=== PATIENT | male | born 1980 | race Caucasian/White ===

== ENCOUNTER 2022-04-12 04:10 | Emergency (ER) | payer SELFPAY ==
[~2022-04-12] VITALS: Ht 167.6 cm; Wt 81.6 kg
[2022-04-12 04:11] VITALS: BP 146/79
[2022-04-12] MEDS ORDERED: OFLO5SOL27 LEFT EAR (06:01)
[2022-04-12] MEDS ORDERED: NAPR-54 PO (06:01)
== END 2022-04-12 06:20 | disposition home or self-care (01) ==
LOC: MED 04:10
DX: T16.2XXA Foreign body in left ear, initial encounter (principal); E11.9 Type 2 diabetes mellitus without complications; Z79.899 Other long term (current) drug therapy; X58.XXXA Exposure to other specified factors, initial encounter; Y93.89 Activity, other specified; Y92.89 Other specified places as the place of occurrence of the external cause; Y99.8 Other external cause status
CPT/HCPCS: 69200; 99284

== ENCOUNTER 2022-04-21 19:12 | Emergency (ER) | payer SELFPAY ==
[~2022-04-21] VITALS: Ht 167.6 cm; Wt 85.7 kg
[~2022-04-21 19:12] MED LIST: NAPR-54 PO; OFLO5SOL27 LEFT EAR
[2022-04-21 19:33] VITALS: BP 120/93
[2022-04-21] MEDS: HYDROcodone/APAP 5/325 MG 1 TAB TAB PO ONE (22:10)
[2022-04-22] MEDS ORDERED: CIPR7.5S OT (01:05)
[2022-04-22 01:19] VITALS: BP 131/67
== END 2022-04-22 01:19 | disposition home or self-care (01) ==
LOC: MED 19:12
DX: T16.2XXA Foreign body in left ear, initial encounter (principal); E11.9 Type 2 diabetes mellitus without complications; Z79.2 Long term (current) use of antibiotics; Z79.1 Long term (current) use of non-steroidal anti-inflammatories (NSAID); X58.XXXA Exposure to other specified factors, initial encounter; Y92.89 Other specified places as the place of occurrence of the external cause; Y93.89 Activity, other specified; Y99.8 Other external cause status
CPT/HCPCS: 69200; 99284

== ENCOUNTER 2022-04-27 14:43 | Emergency (ER) | payer SELFPAY ==
[~2022-04-27] VITALS: Ht 165.1 cm; Wt 86.2 kg
[~2022-04-27 14:43] MED LIST changes: +CIPR7.5S OT
[2022-04-27 15:11] VITALS: BP 138/98
--- NOTE | 2022-04-27 15:34 | NUR ---
DR CARDOZO AT BEDSIDE FOR EVAL
[2022-04-27] MEDS ORDERED: CIPR7.5S OT (15:42)
--- NOTE | 2022-04-27 16:05 | NUR ---
42 Y/O MALE BIB SELF C/O LEFT EAR PAIN, PER PT HE WAS SEEN IN ED 2 WEEKS AGO FOR THE SAME S/S, WAS IRRIGATED BUT CONTINUES TO STATE THAT HE FEELS MOVEMENT AND PAIN. pmh: dm2 nka med: metformin
--- NOTE | 2022-04-27 16:15 | NUR ---
LEFT ear irrigated with 50 ml of normal saline. COCKROACH EXOSKELETON noted removed from ear by irrigation. Patient TOLERATED WELL to procedure.
--- NOTE | 2022-04-27 16:30 | NUR ---
Patient discharged with v/s stable. Written and verbal after care instructions ABOUT OTITIS EXTERNA given and explained. Patient alert, oriented and verbalized understanding of instructions. Ambulatory with steady gait. All questions addressed prior to discharge. ID band removed. Patient advised to follow up with PMD. Rx of CIPRODEX OTIC SUSPENSION given. Patient educated on indication of medication including possible reaction and side effects. Opportunity to ask questions provided and answered.
== END 2022-04-27 16:30 | disposition home or self-care (01) ==
LOC: MED 14:43
DX: T16.2XXA Foreign body in left ear, initial encounter (principal); E11.9 Type 2 diabetes mellitus without complications; Z79.4 Long term (current) use of insulin; Z79.899 Other long term (current) drug therapy; X58.XXXA Exposure to other specified factors, initial encounter; Y93.89 Activity, other specified; Y92.89 Other specified places as the place of occurrence of the external cause; Y99.8 Other external cause status
CPT/HCPCS: 99283

== ENCOUNTER 2023-10-12 01:45 | Emergency (ER) | payer SELFPAY ==
[~2023-10-12] VITALS: Ht 160 cm; Wt 83.0 kg
[2023-10-12 02:05] VITALS: BP 146/102; PULSE 105; RESP 16; TEMP 97.7; O2SAT 100
[2023-10-12] MEDS ORDERED: BENC TP (03:46)
[2023-10-12] MEDS ORDERED: CLIN300C61 PO (03:46)
[2023-10-12 04:00] VITALS: BP 146/102; PULSE 105; RESP 16; TEMP 97.7; O2SAT 100
== END 2023-10-12 04:00 | disposition home or self-care (01) ==
LOC: MED 01:45
DX: L03.115 Cellulitis of right lower limb (principal); E11.9 Type 2 diabetes mellitus without complications; Z79.4 Long term (current) use of insulin; Z79.899 Other long term (current) drug therapy
CPT/HCPCS: 99283

== ENCOUNTER 2023-12-01 02:15 | Emergency (ER) | payer SELFPAY ==
[~2023-12-01] VITALS: Ht 160 cm; Wt 85.3 kg
[~2023-12-01 02:15] MED LIST changes: +BENC TP; +CLIN300C61 PO; +NAPR-337 PO; -NAPR-54 PO
[2023-12-01 02:21] VITALS: BP 151/103; PULSE 115; RESP 18; TEMP 98; O2SAT 98
[2023-12-01] MEDS: CLONIDINE HYDROCHLORIDE 0.1 MG TAB PO ONE (04:05)
[2023-12-01 04:15] VITALS: BP 160/105; PULSE 104; RESP 18; TEMP 36.66960; O2SAT 98
[2023-12-01] MEDS ORDERED: LOSA100T52 PO (04:27)
== END 2023-12-01 04:35 | disposition home or self-care (01) ==
LOC: MED 02:15
DX: I10 Essential (primary) hypertension (principal); B35.3 Tinea pedis; E11.9 Type 2 diabetes mellitus without complications; Z79.899 Other long term (current) drug therapy
CPT/HCPCS: 99283

== ENCOUNTER 2023-12-03 03:33 | Emergency (ER) | payer SELFPAY ==
[~2023-12-03] VITALS: Ht 167.6 cm; Wt 86.2 kg
[~2023-12-03 03:33] MED LIST changes: +LOSA100T52 PO
[2023-12-03 03:54] VITALS: BP 158/96; PULSE 95; RESP 16; TEMP 98.1; O2SAT 98
[2023-12-03 04:04] VITALS: BP 158/96; PULSE 95; RESP 16; TEMP 98.1; O2SAT 98
[2023-12-03] MEDS ORDERED: LOPE1TAB14 PO (04:09)
[2023-12-03] MEDS ORDERED: BEN10 PO (04:09)
[2023-12-03] MEDS: DICYCLOMINE 20 MG/2 ML VIAL IM ONE (04:27)
== END 2023-12-03 04:18 | disposition home or self-care (01) ==
LOC: MED 03:33
DX: R10.9 Unspecified abdominal pain (principal); R19.7 Diarrhea, unspecified; E11.9 Type 2 diabetes mellitus without complications; Z90.49 Acquired absence of other specified parts of digestive tract; Z79.899 Other long term (current) drug therapy
CPT/HCPCS: 96372; 99283; J0500

== ENCOUNTER 2023-12-29 02:30 | Emergency (ER) | payer SELFPAY ==
[~2023-12-29] VITALS: Ht 165.1 cm; Wt 86.2 kg
[~2023-12-29 02:30] MED LIST changes: +BEN10 PO; +LOPE1TAB14 PO
[2023-12-29 02:34] VITALS: BP 161/104; PULSE 104; RESP 18; TEMP 97.8; O2SAT 100
[2023-12-29 03:17] LABS: BASOPHILS % (AUTO) 0.5 % (0.0-2.0); EOSINOPHILS # (AUTO) 0.2 K/uL (0-0.4); EOSINOPHILS % (AUTO) 2.1 % (0.0-4.0); HEMATOCRIT 45.9 % (36-52); HEMOGLOBIN 15.3 g/dL (12.0-18.0); LYMPHOCYTES # (AUTO) 2.2 K/uL (2.0-11.5); LYMPHOCYTES % (AUTO) 26.6 % (20.5-51.1); MEAN CORPUSCULAR HEMOGLOBIN 27 pg (27-31); MEAN CORPUSCULAR HGB CONC 33 g/dL (33-37); MEAN CORPUSCULAR VOLUME 81.8 fL (80-94); MONOCYTES # (AUTO) 0.5 K/uL (0.8-1.0); MONOCYTES % (AUTO) 6.7 % (1.7-9.3); NEUTROPHILS # (AUTO) 5.2 K/uL (1.8-7.7); NEUTROPHILS % (AUTO) 64.1 % (42.2-75.2); PLATELET COUNT (AUTO) 226 K/uL (140-450); RED BLOOD CELL COUNT(AUTO) 5.61 MIL/uL (4.20-6.10); RED CELL DISTRIBUTION WIDTH 14.5 % (11.6-13.7); WHITE BLOOD COUNT (AUTO) 8.1 K/uL (4.8-10.8)
[2023-12-29 03:29] VITALS: O2SAT 98
[2023-12-29 03:36] LABS: ALBUMIN 4.2 g/dL (3.4-5.0); ANION GAP 14.5 (8-16); CALCIUM 8.7 mg/dL (8.5-10.1); CARBON DIOXIDE 24.9 mmol/L (21-32); CREATININE 0.8 mg/dL (0.6-1.3); POTASSIUM 3.4 mmol/L (3.5-5.1); TOTAL BILIRUBIN 0.4 mg/dL (0.0-1.0); TOTAL PROTEIN, SERUM 7.4 g/dL (6.4-8.2)
[2023-12-29] MEDS: ACETAMINOPHEN 325 MG TAB PO ONE (03:40)
[2023-12-29 05:03] LABS: APPEARANCE,URINE CLEAR (CLEAR); BILIRUBIN,URINE NEGATIVE (NEGATIVE); BLOOD, URINE NEGATIVE (NEGATIVE); COLOR,URINE YELLOW (YELLOW); LEUKOCYTE ESTERASE ,URINE NEGATIVE (NEGATIVE); NITRITE, URINE NEGATIVE (NEGATIVE); PH,URINE 6.5 (5.0-9.0); PROTEIN,URINE 1+ (NEGATIVE); UGLUCOSE NEGATIVE (NEGATIVE); UROBILINOGEN,URINE 0.2 EU/dL (0.2 - 1)
[2023-12-29 05:29] VITALS: BP 139/98; PULSE 91; RESP 15; TEMP 97.7; O2SAT 98
== END 2023-12-29 05:29 | disposition home or self-care (01) ==
LOC: MED 02:30
DX: R10.9 Unspecified abdominal pain (principal); R11.0 Nausea; E11.9 Type 2 diabetes mellitus without complications; Z79.899 Other long term (current) drug therapy; Z79.4 Long term (current) use of insulin
CPT/HCPCS: 36415; 80053; 81003; 83690; 85025; 99284